=== PATIENT | female | born 1965 | race Two or more races ===

== ENCOUNTER 2018-09-04 10:09 | Day surgery (SDC) | payer OTHER ==
[~2018-09-04 10:09] MED LIST: SYNTHROID100 MCG PO; ZYRTEC10 MG PO
== END 2018-09-04 18:15 | disposition home or self-care (01) ==
LOC: CIR.AMB 10:09
DX: N84.0 Polyp of corpus uteri (principal)

== ENCOUNTER 2021-04-20 06:20 | Day surgery (SDC) | payer OTHER ==
[~2021-04-20 06:20] MED LIST changes: +SYNTHROID50 MCG PO
== END 2021-04-20 16:00 | disposition home or self-care (01) ==
LOC: CIR.AMB 06:20
PROVIDERS: ATTEND Obstetrics & Gynecology
DX: N76.4 Abscess of vulva (principal); Z20.822 Contact with and (suspected) exposure to COVID-19